=== PATIENT | female | born 1990 | race African-American/Black ===

== ENCOUNTER 2021-07-03 07:20 | Day surgery (SDC) | payer MEDICARE, MEDICAID ==
[2021-06-28 10:10] VITALS: BMI 54.8
[2021-07-03] MEDS ORDERED: AFRIN NASAL MIST 15 ML BOT ONE ×2 (08:22→09:15)
[2021-07-03 09:02] LABS: BHCG - Serum Negative (NEGATIVE); Pregs Control Bar Appear? YES (CONTROL BAR)
[2021-07-03 09:03] LABS: Pregs Control Background? CLEAR/WHITE (CLR/WHITE)
[2021-07-03] MEDS ORDERED: Xylocaine 1% w/ Epi 1:100K 10 ML VIAL ONE (09:15)
[2021-07-03] MEDS ORDERED: Bacitracin Zinc Ointment 30 gm TUBE ONE (09:15)
[2021-07-03] MEDS ORDERED: Midazolam HCl 2 mg/2 ml Vial ONE (09:21)
[2021-07-03] MEDS ORDERED: Fentanyl 250 MCG/5 ML VIAL ONE ×2 (09:23→10:17)
[2021-07-03] MEDS ORDERED: Ondansetron PF 4 MG/2 ML Vial ONE (09:32)
[2021-07-03] MEDS ORDERED: Dexamethasone 20 MG/5 ML VIAL ONE (09:32)
[2021-07-03] MEDS ORDERED: Succinylcholine 200 MG/10 ml SYRINGE FS ONE (09:32)
[2021-07-03] MEDS ORDERED: PROPOFOL 200 MG/20 ML VIAL ONE (09:32)
[2021-07-03] MEDS ORDERED: Sodium Chloride For Inhalation 0.9% 3 ML NEB ONE (10:11)
[2021-07-03] MEDS ORDERED: Hydrocodone-Acetamin 15 ML UDCUP ONE (11:34)
== END 2021-07-03 12:27 | disposition home or self-care (01) ==
LOC: SDC 07:20
PROVIDERS: ATTEND Otolaryngology Plastic Surgery within the Head & Neck
PROC: 09SM0ZZ Reposition Nasal Septum, Open Approach (ICD-10-PCS; principal; 2021-07-03)
PROC: 09TL0ZZ Resection of Nasal Turbinate, Open Approach (ICD-10-PCS; 2021-07-03)
PROC: 0NSBXZZ Reposition Nasal Bone, External Approach (ICD-10-PCS; 2021-07-03)
DX: J34.2 Deviated nasal septum (principal); S02.2XXA Fracture of nasal bones, initial encounter for closed fracture; J34.3 Hypertrophy of nasal turbinates; J34.89 Other specified disorders of nose and nasal sinuses; F17.210 Nicotine dependence, cigarettes, uncomplicated; Z86.16 Personal history of COVID-19; W22.8XXA Striking against or struck by other objects, initial encounter
CPT/HCPCS: 84703; 85014; J1100; J2250; J2405; J2704; J3010; J7620